=== PATIENT | female | born 1960 | race African-American/Black ===

== ENCOUNTER 2019-05-28 07:01 | Emergency (ER) | payer MEDICAID, OTHER ==
[~2019-05-28] VITALS: Ht 170.2 cm; Wt 109.0 kg
[2019-05-28] MEDS ORDERED: MORPHINE SULFATE 4 MG/ML CPJ (NOT FOR IM USE) IV STA (07:34)
[2019-05-28] MEDS ORDERED: SODIUM CHLORIDE 0.9% 1,000 ML IV ONE (07:34)
[2019-05-28] MEDS ORDERED: ONDANSETRON HCL 4MG/2ML INJ IV STA (07:34)
[2019-05-28 08:11] LABS: BASOPHILS % 0.5 % (0.0-2.0); EOSINOPHILS % 6.5 % (0.0-5.0); HEMATOCRIT. 36.8 % (36.0-48.0); HEMOGLOBIN. 12.5 g/dL (12.0-16.0); LYMPHOCYTES % 34.4 % (20.0-50.0); MEAN CORPUSCULAR HEMOGLOBIN 30.6 pg (28.0-32.0); MEAN PLATELET VOLUME 8.8 fl (7.4-10.4); MONOCYTES % 7.1 % (2.0-8.0); NEUTROPHILS % 51.5 % (40.0-76.0); PLATELET 232 x1000/uL (130-400); RED BLOOD CELL COUNT 4.09 mill/uL (4.2-5.4); RED CELL DISTRIBUTION WIDTH 13.9 % (11.6-14.6)
[2019-05-28 08:18] LABS: CHLORIDE 109 mEq/L (98-107)
[2019-05-28 08:19] LABS: PROTHROMBIN TIME 10.1 sec (9.6-11.0)
[2019-05-28 08:40] LABS: HCG SCREEN INDETERMINATE
[2019-05-28 09:27] LABS: CLARITY URINE CLEAR (CLEAR); COLOR URINE YELLOW (YELLOW); KETONES URINE NEGATIVE (NEGATIVE); LEUKOCYTE ESTERASE URINE 1+ (NEGATIVE); NITRITE URINE NEGATIVE (NEGATIVE); OCCULT BLOOD URINE NEGATIVE (NEGATIVE); PROTEIN URINE NEGATIVE (NEGATIVE); SPECIFIC GRAVITY URINE 1.024 (1.005-1.030); UROBILINOGEN URINE 0.2 E.U./dL (0.2-1.0)
[2019-05-28] MEDS ORDERED: IOHEXOL-300 100 ML BOTTLE ONE (09:35)
[2019-05-28 09:37] LABS: *AMPHETAMINES SCREEN URINE NEGATIVE (NEGATIVE); *BARBITURATES SCREEN URINE NEGATIVE (NEGATIVE); *COCAINE SCREEN URINE PRESUMTIVE POSITIVE (NEGATIVE)
[2019-05-28 09:38] LABS: *BENZODIAZEPINES SCREEN URINE NEGATIVE (NEGATIVE); CANNABINOID URINE SCREEN NEGATIVE (NEGATIVE); METHADONE URINE SCREEN NEGATIVE (NEGATIVE); OPIATES URINE SCREEN PRESUMTIVE POSITIVE (NEGATIVE); PHENCYCLIDINE URINE SCREEN NEGATIVE (NEGATIVE)
[2019-05-28 14:20] VITALS: BP 136/76
== END 2019-05-28 14:25 | disposition home or self-care (01) ==
LOC: ER 07:01
DX: R10.9 Unspecified abdominal pain (principal); K59.00 Constipation, unspecified; I10 Essential (primary) hypertension; F17.200 Nicotine dependence, unspecified, uncomplicated
CPT/HCPCS: 36415; 71045; 74177; 80053; 80305; 81003; 81025; 83690; 84484; 84703; 85025; 85610; 93005; 96374; 96375; 99284; J2270; J2405; J7030; Q9967; Z7610

== ENCOUNTER 2023-04-08 18:26 | Emergency (ER) | payer MEDICAID ==
[~2023-04-08] VITALS: Ht 170.2 cm; Wt 85.0 kg
[2023-04-08 18:35] VITALS: BP 146/99; PULSE 84; RESP 16; O2SAT 99
[2023-04-08 18:45] VITALS: TEMP 98.8
[2023-04-08] MEDS ORDERED: ACETAMINOPHEN 325MG TABLET PO ONE (18:45)
[2023-04-08] MEDS ORDERED: IBUP-2029 MT (18:51)
== END 2023-04-08 19:59 | disposition home or self-care (01) ==
LOC: ER 18:26
DX: M79.10 Myalgia, unspecified site (principal); I11.0 Hypertensive heart disease with heart failure; I50.9 Heart failure, unspecified; Z86.73 Personal history of transient ischemic attack (TIA), and cerebral infarction without residual deficits
CPT/HCPCS: 99283; Z7610

== ENCOUNTER 2023-10-22 08:36 | Emergency (ER) | payer MEDICAID ==
[~2023-10-22] VITALS: Ht 162.6 cm; Wt 73.0 kg
[~2023-10-22 08:36] MED LIST: IBUP-2029 MT
[2023-10-22 08:42] VITALS: O2SAT 100
[2023-10-22] MEDS: ACETAMINOPHEN 325MG TABLET PO ONE (08:56)
[2023-10-22] MEDS ORDERED: TOPUD PO (09:33)
[2023-10-22 10:38] VITALS: BP 152/86; PULSE 80; RESP 16; TEMP 98.3
== END 2023-10-22 10:55 | disposition home or self-care (01) ==
LOC: ER 08:36
DX: S40.011A Contusion of right shoulder, initial encounter (principal); I11.0 Hypertensive heart disease with heart failure; I50.9 Heart failure, unspecified; Z86.73 Personal history of transient ischemic attack (TIA), and cerebral infarction without residual deficits; W01.0XXA Fall on same level from slipping, tripping and stumbling without subsequent striking against object, initial encounter; Y93.89 Activity, other specified; Y92.89 Other specified places as the place of occurrence of the external cause; Y99.8 Other external cause status
CPT/HCPCS: 73030; 99283